=== PATIENT | female | born 1930 | race Caucasian/White ===

== ENCOUNTER 2017-08-10 05:07 | Inpatient (IN) | END 2017-08-15 21:11 | DRG 870 ==

== ENCOUNTER 2017-10-09 06:47 | Emergency (ER) | END 2017-10-09 09:45 | disposition home or self-care (01) ==

== ENCOUNTER 2017-10-29 15:57 | Emergency (ER) | END 2017-10-30 00:09 | disposition home or self-care (01) ==

== ENCOUNTER 2018-04-08 19:39 | Inpatient (IN) | END 2018-04-14 20:00 | disposition short-term general hospital (02) | DRG 871 ==